=== PATIENT | female | born 1985 | race Caucasian/White ===

== ENCOUNTER 2019-04-17 19:36 | Emergency (ER) | payer SELFPAY ==
[2019-04-17 19:36] VITALS: BP 163/101; PULSE 80; RESP 16; TEMP 36.8; O2SAT 100; BMI 31.4
--- NOTE | 2019-04-17 19:42 | ED.RN ---
CALLED FOR EKG, NO ANSWER, NO OLD EKGS IN MUSE
--- NOTE | 2019-04-17 20:12 | EKG12_ITS ---
Test Reason : PALPATIONS Blood Pressure : / mmHG Vent. Rate : 077 BPM Atrial Rate : 077 BPM P-R Int : 164 ms QRS Dur : 084 ms QT Int : 402 ms P-R-T Axes : 036 -20 017 degrees QTc Int : 454 ms Normal sinus rhythm Normal ECG Confirmed by DIANE PENA, FABI ([id number]), copy editor KWABENA HARTMANN ([id number]) on 04/18/2019 9:11:47 AM Referred By: AZRA Confirmed By:FABI CONTRERAS MD
[2019-04-17] MEDS: 0.9% Normal Saline 1,000 ML 150 ML IV (20:26)
[2019-04-17 20:37] LABS: Internal QC Validated? YES +Cl - CLEAR BKGD; Pregnancy, Serum, hCG Quali. NEGATIVE Negative
[2019-04-17 20:42] LABS: D-Dimer Quantitative (DVT/PE) 0.33 FEU/ug/m (0.27-0.49)
[2019-04-17 20:45] LABS: Absolute Lymphocyte Count 2.18 X10^3/uL (0.83-4.51); Absolute Neutrophil Count 5.9 X10^3/uL (2.0-7.7); Basophil# 0.07 X10^3/uL; Basophil% 0.8 % (0-1); Eosinophil# 0.13 X10^3/uL; Eosinophils% 1.5 % (0-5); Hematocrit 43.5 % (37-47); Hemoglobin 14.8 g/dL (12.0-15.0); Lymphocyte # 2.18 X10^3/ul (4.0); Lymphocyte % 24.7 % (19-41); Mean Corpuscular Volume 91.2 fL (81-99); Mean Platelet Vol. 11.3 fl (6.2-12.0); Monocyte# 0.54 X10^3/uL; Monocyte% 6.1 % (0-10); NRBC Flagged by Analyzer 0 % (0-5); Neutrophil # 5.88 X10^3/uL (2.7-7.7); Neutrophil % 66.7 % (47-70); Platelet Count 213 K/mm3 (150-450); RBC Distribution Width CV 11.9 % (11.6-14.6); RBC Distribution Width SD 39.5 fl (35.1-43.9); Red Blood Count 4.77 M/mm3 (4.2-5.4); White Blood Count 8.8 K/mm3 (4.4-11.0)
[2019-04-17 20:48] VITALS: BP 144/93; PULSE 84; RESP 16; O2SAT 98
[2019-04-17 20:51] LABS: Anion Gap 8 (5-15); BUN 11 mg/dL (7-18); BUN/Creat Ratio 10.4 RATIO (10-20); Chloride 109 mmol/L (98-107); Creatinine, Serum 1.06 mg/dL (0.55-1.02); EST Glomerular Filtration Rate 63 mL/min (>60); Est Glom Filt Rate - Afr Amer 76 mL/min (>60); Glucose 126 mg/dL (74-106); Potassium 3.5 mmol/L (3.5-5.1); Sodium Level 145 mmol/L (136-145); Thyroid Stim Hormone (TSH) 2.97 uIU/mL (0.358-3.74)
--- NOTE | 2019-04-17 21:07 | ED.DCSUM_ITS ---
- ER Visit Summary Date of Service: 04/17/19 Chief Complaint: [Chest tightness and fluttering and chest] History of Present Illness: The patient is a 33 F [with symptoms that started about 3 hours ago. Patient denies any chest pain per se she has some mild shortness of breath. Patient normally drinks about 2 cups of coffee a day. She has no history of anxiety. Last menstrual. Was 1 week ago and she does not believe that she is . Patient felt somewhat lightheaded earlier in the day. Patient has had similar symptoms in the past but these usually have passed after a short time. She denies recent travel or surgery. Patient's mother has history of mitral valve prolapse but she herself is never been diagnosed with that. She has not had any fever or cough. No thyroid history.] Physical Examination: [HEENT-PERRLA, EOMI. Cranial nerves II through XII grossly intact. TMs clear. Mucous membranes moist. No adenopathy. Cardiovascular-regular rate and rhythm without murmur or ectopy. No rubs, or clicks noted. Lungs-clear to auscultation, chest wall stable without crepitus or subcu emphysema Abdomen-normoactive bowel sounds, soft, nontender, no rebound or rigidity, no peritoneal signs. Extremities-intact ?4, normal range of motion, normal pulses, atraumatic Test Results: [EKG obtained on arrival shows sinus rhythm with a ventricular rate of 77 bpm with no evidence of ectopy. CBC with differential was normal. Chemistries unremarkable. Troponin is less than 0.15. hCG was negative. D- dimer was normal. TSH was 2.97.] Emergency Department Course and Treatment: [] Treatment Plan: [Follow-up with primary care physician within next 3 to 5 days. Patient would like to follow-up with Dr. Shaffer] Disposition: [Discharged home in stable condition] Impression: [Palpitations-etiology uncertain.] This note was generated with Mr Bananaation software. It may contain incorrect words, spelling, and punctuation that were not noted in review of the chart prior to signing ED Disposition - Plan for ED Patient: Referrals: Care Physician,No Primary [Primary Care Provider] -
--- NOTE | 2019-04-17 21:10 | ED.DEP ---
ED Disposition - Plan for ED Patient: Instructions: Palpitations Referrals: Care Physician,No Primary [Primary Care Provider] - Melina Shaffer MD [STAFF PHYSICIAN] - 3-5 Days
[2019-04-17 21:13] VITALS: BP 141/96; PULSE 64; RESP 13; O2SAT 99
== END 2019-04-17 21:19 | disposition home or self-care (01) ==
LOC: ED 20:35
PROVIDERS: Emergency Provider Emergency Medicine
DX: R00.2 Palpitations (principal); R42 Dizziness and giddiness; R07.89 Other chest pain; R06.02 Shortness of breath
CPT/HCPCS: 80048; 84443; 84484; 84703; 85025; 85379; 93005; 96360; 99284; J7030; A4216

== ENCOUNTER → 2019-05-20 14:02 | Outpatient (CLI) | payer SELFPAY | PROVIDERS: Family Provider Family Medicine; PCP Family Medicine; Visit Provider Family Medicine | DX: N92.6 Irregular menstruation, unspecified (principal); E28.2 Polycystic ovarian syndrome; D64.9 Anemia, unspecified | CPT/HCPCS: 36415 ==

== ENCOUNTER 2020-06-19 08:45 | Inpatient (IN) | payer SELFPAY ==
[2020-06-19] VITALS (22 sets, daily range): BP systolic 104–156; BP diastolic 58–101; PULSE 64–95; RESP 15–18; TEMP 36.3–37.7; O2SAT 95–100; BMI 35.0
[2020-06-19] MEDS: Lactated Ringers 1,000 ML 999 ML IV (10:40)
[2020-06-19 10:58] LABS: Absolute Neutrophil Count 9.3 X10^3/uL (2.0-7.7); Basophil# 0.04 X10^3/uL; Basophil% 0.3 % (0-1); Eosinophil# 0.05 X10^3/uL; Eosinophils% 0.4 % (0-5); Hematocrit 40.2 % (37-47); Hemoglobin 13.8 g/dL (12.0-15.0); Lymphocyte % 14.5 % (19-41); Mean Corp Hgb Conc 34.3 g/dL (32-36); Mean Corpuscular Hgb 32.6 pg (27.0-32.0); Mean Platelet Vol. 11.4 fl (6.2-12.0); Monocyte# 0.58 X10^3/uL; Monocyte% 4.9 % (0-10); NRBC Flagged by Analyzer 0 % (0-5); Neutrophil # 9.28 X10^3/uL (2.7-7.7); Neutrophil % 79.3 % (47-70); Platelet Count 187 K/mm3 (150-450); RBC Distribution Width SD 44.6 fl (35.1-43.9); Red Blood Count 4.23 M/mm3 (4.2-5.4); White Blood Count 11.7 K/mm3 (4.4-11.0)
[2020-06-19 11:08] LABS: International Normalized Ratio 0.9; Prothrombin Time (Protime)PT. 12.1 SECONDS (11.7-14.9)
--- NOTE | 2020-06-19 11:14 | HP.PCM_ITS ---
- Problem List (1) Pre-eclampsia Status: Acute (2) premature rupture of membranes (PPROM) with onset of labor within 24 hours of rupture in third trimester, antepartum Status: Acute (3) Breech presentation Status: Acute History Date of Admission: 06/19/20 Final LEONARD: 07/14/20 Gestational age: 36 Weeks and 3 Days History of this : This is a 35 year-old, , at 36 weeks gestational age presents with P PROM and elevated blood pressures. She has been receiving care by a bricklayer supervisor Audra Foy. She has a history of 4 previous term vaginal deliveries at home without any complications. She had ultrasound at 20 weeks with this that showed no significant abnormality. Blood pressures have been increasing over the last several days and patient is asymptomatic denying any vaginal bleeding headache blurry vision right upper quadrant pain or nausea or vomiting. Denies any previous hypertension with any . She began leaking at 430 this morning clear fluid. Blood pressures are 150s over 90s. CBC and CMP are within normal limits. Allergies No Known Allergies Allergy (Verified 04/17/19 19:38) Home Medications: Home Medications Pnv No.95/Ferrous Fum/Folic AC [ Caplet] 1 ea PO 06/19/20 Smoking Status: Never smoker Alcohol: None Number of Fetus(es): 1 NST - FHR Rate Baby A Baseline: 140 Variability:: Minimal, Moderate Accelerations:: 15 x 15 Decelerations:: None NST Reactive:: Yes FHR Category:: Category I, Category II - initially then resolved with oxygen and fluids Uterine Activity:: no regular History Past Pregnancies: Past Pregnancies 4 previous term vaginal deliveries weighing 7 pounds to 8 pounds. Home births without complication. Labs: Mom's Problem List Problem Status Onset Code Pre-eclampsia Acute O14.90 premature rupture of membranes (PPROM) with onset of labor within 24 wil rs of rupture in third trimester, antepartum Acute O42.013 Breech presentation Acute O32.1XX0 Mom's Labs & Results 06/19/20 06/19/20 06/19/20 10:40 10:40 10:40 WBC 11.7 H RBC 4.23 Hgb 13.8 Hct 40.2 MCV 95.0 MCH 32.6 H MCHC 34.3 RDW Std Deviation 44.6 H RDW Coeff of Landy 13.0 Plt Count 187 MPV 11.4 Immature Gran % (Auto) 0.600 Neut % (Auto) 79.3 H Lymph % (Auto) 14.5 L [place] % (Auto) 4.9 Eos % (Auto) 0.4 Baso % (Auto) 0.3 Absolute Neuts (auto) 9.3 H Absolute Lymphs (auto) 1.70 Nucleated RBC % 0 PT INR APTT Creatinine Estim Creat Clear Calc Est GFR (MDRD) Af Amer Est GFR (MDRD) Non-Af Uric Acid AST ALT RPR Hep Bs Antigen Hepatitis C Antibody HIV 1&2 Antibody Rubella IgG Antibody Pending Blood Type Pending Antibody Screen Pending 06/19/20 06/19/20 06/19/20 10:40 10:40 10:40 WBC RBC Hgb Hct MCV MCH MCHC RDW Std Deviation RDW Coeff of Landy Plt Count MPV Immature Gran % (Auto) Neut % (Auto) Lymph % (Auto) [place] % (Auto) Eos % (Auto) Baso % (Auto) Absolute Neuts (auto) Absolute Lymphs (auto) Nucleated RBC % PT 12.1 INR 0.9 APTT 25.0 Creatinine Estim Creat Clear Calc Est GFR (MDRD) Af Amer Est GFR (MDRD) Non-Af Uric Acid AST ALT RPR Pending Hep Bs Antigen Pending Hepatitis C Antibody Pending HIV 1&2 Antibody Pending Rubella IgG Antibody Blood Type Antibody Screen 06/19/20 10:49 WBC RBC Hgb Hct MCV MCH MCHC RDW Std Deviation RDW Coeff of Landy Plt Count MPV Immature Gran % (Auto) Neut % (Auto) Lymph % (Auto) [place] % (Auto) Eos % (Auto) Baso % (Auto) Absolute Neuts (auto) Absolute Lymphs (auto) Nucleated RBC % PT INR APTT Creatinine 0.74 Estim Creat Clear Calc 83.92 Est GFR (MDRD) Af Amer 114 Est GFR (MDRD) Non-Af 94 Uric Acid 4.8 AST 15 ALT 16 RPR Hep Bs Antigen Hepatitis C Antibody HIV 1&2 Antibody Rubella IgG Antibody Blood Type Antibody Screen Course Did the patient receive Yes care? Labs HbSAg Collected on Admission Chlamydia Not Done Gonorrhea Not Done HIV/AIDS Non-Reactive Group B Strep: Collected on Admission Current Obstetrical History Gestational Diabetes No Incompetent Cervix No Infertility No IUGR No Macrosomia No Hypertension/Pre-eclampsia Yes Placenta Previa/Abruption No PTL/PROM Yes Uterine anomaly No Oligohydramnios No Polyhydramnios No Multiple gestation No Past Medical History Asthma No Diabetes No Hypertension No Heart disease No Mitral valve prolapse No Neurologic/Seizure disorder/ No Migraines Kidney disease No Liver disease No Varicosities No Clotting disorders/Hx of DVT No Psychiatric disorders Yes: h/o panic attacks Major trauma Yes: 20 yo kick in leg playing soccer that caused blood clot causing mini stroke Abnormal PAP smear No Sleep apnea No Mammogram in the last 2 years No Social History Marital Status: Alleged father Guilherme Singh Hx Smoking No Smoking Status Never smoker Expected Infant Delivery Method: Primary Section Review of Systems Constitutional: Denies: Fever, Malaise Eyes: Denies: Blurred vision, Vision Change HEENT: Denies: Head Aches, Visual Changes Cardiovascular: Denies: Chest Pain, Palpitations Respiratory: Denies: Cough, Shortness of Breath, Wheezing Gastrointestinal: Denies: Abdominal Pain, Diarrhea, Nausea, Vomiting Genitourinary: Denies: Dysuria, Hematuria Gynecological: Reports: Vaginal discharge Musculoskeletal: Denies: Joint Pain, Muscle pain Skin: Denies: Lesions, Rash Neurological: Denies: Blurred vision, Focal weakness, Headaches Psychiatric: Denies: Anxiety, Depression Endocrine: Denies: Heat/ Cold Intolerance Hematologic/ Lymphatic: Denies: Easy Bruising, Easy Bleeding Physical Exam Vitals: Vital Signs Temp Pulse BP 99.9 F H 95 156/101 H 06/19/20 08:58 06/19/20 10:08 06/19/20 10:08 General: Alert, Cooperative, No apparent distress HEENT: Atraumatic, Normocephalic. Negative for: Thyromegaly, Lymphadenopathy Cardiovascular: Regular rate Lungs: Normal air movement Abdomen: Soft, Non Tender, Gravid Neurological: Deep Tendon Reflexes 2+/4 and Symmetrical, Neuro grossly intact. Negative for: Clonus OFFICE ASSOCIATE: Normal external genitalia. Negative for: Vulvar lesions Estimated gestational size: Appropriate for gestational size Presentation: Breech Cervix Dilation (cm): 3 Assessment/Plan All Active Problems Pre-eclampsia (Acute) premature rupture of membranes (PPROM) with onset of labor within 24 hours of rupture in third trimester, antepartum (Acute) Breech presentation (Acute) This is a 35 year-old, , at 36 weeks gestational age presents with P PROM and preeclampsia with mild features and breech presentation. Discussed with patient and her recommend proceeding with primary low transverse due to breech presentation and ruptured fluid. Patient is not a candidate for external cephalic version or for vaginal breech .
--- NOTE | 2020-06-19 11:19 | PCM.OPRPT ---
Problem List (1) Pre-eclampsia Status: Acute (2) premature rupture of membranes (PPROM) with onset of labor within 24 hours of rupture in third trimester, antepartum Status: Acute (3) Breech presentation Status: Acute Delivery Final LEONARD: 07/14/20 Gestational age: 36 Weeks and 4 Days joinery machinist: Eleni Mims Type of Anesthesia:: Spinal Special Medications: none Implants Used: none Date of Procedure: 06/19/20 Pre-Operative Diagnosis: pprom breech preeclampsia with mild features Post-Operative Diagnosis: same Indications for : Breech Description of Procedure: Spinal anesthesia was placed without difficulty. Serrato catheter was placed. The patient was placed in the dorsal supine position with leftward tilt. Patient was prepped and draped in the normal sterile fashion. Pfannenstiel skin incision was made with the scalpel and carried through to the underlying layer of fascia with the scalpel. Fascia was nicked in the midline and the incision extended laterally. The rectus bellies were dissected off superiorly and inferiorly with out complication both sharply and bluntly. The peritoneum was entered digitally. The incision was stretched and a low transverse uterine incision was made with the scalpel. The 's buttox and body was delivered atraumatically followed by the anterior and posterior shoulders without complication the rest of the infant delivered. The cord was clamped and cut and the infant was handed off to awaiting nurse. The placenta was delivered spontaneously immediately following and was noted to be intact and have a three-vessel cord. The uterus was exteriorized cleared of all clots and debris, and the incision was closed in a double layer closure using #1 Monocryl. The ovaries and fallopian tubes were noted to be within normal limits. The uterus was returned to the maternal abdomen and gutters were cleared of all clots and debris. The peritoneum was closed with 3-0 Monocryl in a running fashion. Gloves were changed prior to fascial closure. Fascia was closed with 0 PDS in a running fashion. Subcutaneous tissue was copiously irrigated and the skin was closed with 3-0 Monocryl in a subcuticular fashion. Mepilex dressing was applied without complication. Patient was taken to recovery in stable condition. It was discussed with the patient that based on the clinical information obtained during this encounter, combined with her history, at this time I would recommend vaginal or cesareans for future deliveries if further pregnancies are desired. Amniotic Membrane Rupture Type: Spontaneous Amniotic Fluid Description: Clear Placenta Disposition: [facility] Fluids Replaced: crystalloid Cord Entanglement: None Cord Vessel Description: 3 Vessels Esitmated Blood Loss (ml): 600 Infant Gender: Male Delayed cord clamping: Yes Antibiotic Given: Ancef 2 grams IV x1, Zithromax 500 mg/5 mL X1 Pt instructed on risks of surgery: Bleeding, Anesthesia Risks, Infection, Injury to surrounding structure(s) including bowel and bladder Complications: None - Admit VTE Documentation VTE Present on Admission: No Multi Select Codes - Urinary/Genital Urinary/Genital CPT Codes: 84165 delivery+ Care([facility])
[2020-06-19 11:21] LABS: AST(SGOT) 15 U/L (15-37); Alanine Aminotransfer ALT/SGPT 16 U/L (13-56); Creatinine, Serum 0.74 mg/dL (0.55-1.02); EST Glomerular Filtration Rate 94 mL/min (>60); Est Glom Filt Rate - Afr Amer 114 mL/min (>60); Estimated Creatinine Clearance 83.92 ml/min; Uric Acid 4.8 mg/dL (2.6-6.0)
[2020-06-19] MEDS: Sodium Citrate/Citric Acid 30 ML UDC PO (11:30)
[2020-06-19] MEDS: Acetaminophen 500 MG Tablet 1000 MG PO ×3 (11:30→23:57)
[2020-06-19 11:33] LABS: Rubella IgG Reactive (Nonreactive)
[2020-06-19] MEDS: Cefazolin 2 GM in 0.9% Normal Saline 100 ML IV (11:48)
[2020-06-19 12:00] LABS: HIV - WCH Non-Reactive (Nonreactive); Hepatitis B Surface Antigen Non-Reactive (Nonreactive); Hepatitis C Antibody Non-Reactive (Nonreactive)
[2020-06-19] MEDS: Oxytocin 30 units/NS 500 ml 30 UNITS/500 ML IV.SOLN 167 UNITS IV (13:00)
[2020-06-19] MEDS: Lactated Ringers 1,000 ML 100 ML IV (15:43)
[2020-06-19] MEDS: Ketorolac 30 MG/ML Syringe IV ×2 (18:34→23:59)
[2020-06-19] MEDS: 0.9% Saline Lock 10 ML Syringe IV (23:59)
[2020-06-20] MEDS: Enoxaparin 40 MG/0.4 ML Syringe SC (00:01)
[2020-06-20 00:12] VITALS: BP 147/96; PULSE 84; RESP 16; TEMP 36.7; O2SAT 98
[2020-06-20 00:13] VITALS: PULSE 86; RESP 16; O2SAT 98
[2020-06-20 03:17] VITALS: BP 120/82; PULSE 86; RESP 16; TEMP 36.3; O2SAT 95
[2020-06-20 05:09] LABS: Hematocrit 33.1 % (37-47); Hemoglobin 11.2 g/dL (12.0-15.0); Mean Corp Hgb Conc 33.8 g/dL (32-36); Mean Corpuscular Hgb 32.9 pg (27.0-32.0); Mean Corpuscular Volume 97.4 fL (81-99); Mean Platelet Vol. 10.9 fl (6.2-12.0); Platelet Count 161 K/mm3 (150-450); RBC Distribution Width CV 13.1 % (11.6-14.6); RBC Distribution Width SD 45.7 fl (35.1-43.9); White Blood Count 13.5 K/mm3 (4.4-11.0)
--- NOTE | 2020-06-20 05:18 | DCINST_ITS ---
Discharge Diet: No Restrictions Discharge Activity: May Not Drive - for 2 weeks, May not drive while taking narcotic pain medications., May Shower, May Take a Tub Bath - in 7 days May resume sexual activity in: 4-6 weeks Lifting Restrictions: 20 pounds Additional Activity Instructions:: Nothing in the vagina for 4-6 weeks. You may return to work/school in 6 weeks. Call your doctor if your incision/area has: Continuous Slow Oozing, Sudden Increased Bleeding, Increased Pain/ Swelling, Increased Redness, Foul Smelling Discharge Call your doctor if you observe: Fever of 101 or Higher, Using more than one pad per hour - for 2 hours Suture Line Care: Avoid Pulling/Pushing, Avoid Pinching/Bending Cleanse incision/area with: Keep Dressing Clean & Dry Additional Instructions: If you experience any of the following, contact your healthcare provider. * Bleeding that soaks a pad every hour for 2 hours * Fever 100.4 or higher * Unrelieved incision or abdominal pain * Swelling, redness, discharge or bleeding from your incision or episiotomy site * Your incision begins to separate * Problems urinating (including inability to urinate or burning while urinating). * Visual changes * Severe headache * Flu-like symptoms * Pain or redness in one of both of your breasts * Pain, warmth, tenderness or swelling in your legs, especially the calf area * Frequent nausea and vomiting * Symptoms of depression or anxiety If you experience any of the following, call 911 or go to the nearest Emergency Room. * Chest pain * Problems breathing * Seizure activity * Partial or complete paralysis of a body part, slurred speech, weakness or drooping of the face, or a sudden inability to walk or hold your balance Allergies/Adverse Reactions: Allergies No Known Allergies Allergy (Verified 06/19/20 11:23) Medications to take at Discharge Pnv No.95/Ferrous Fum/Folic AC [ Caplet] 1 ea PO 06/19/20 Naproxen [Naprosyn] 250 - 500 mg PO Q8H PRN PRN #30 tab 06/20/20 Oxycodone HCl/Acetaminophen [Percocet 5-325] 1 - 2 tablet PO Q6H PRN PRN 7 Days #15 tablet 06/20/20 The following prescriptions were given: Naproxen [Naprosyn] 250 - 500 mg PO Q8H PRN PRN #30 tab PRN Reason: MILD PAIN Transmission Status: Pending to [facility] Oxycodone HCl/Acetaminophen [Percocet 5-325] 1 - 2 tablet PO Q6H PRN PRN 7 Days #15 tablet PRN Reason: Pain Transmission Status: Received by [facility] Follow-Up: Call to make an appointment with your doctor for an incision check in 1-2 weeks. You will also need a 6 week post- follow up appointment. Test results from this visit will be discussed in further detail at your follow- up appointment, if applicable. Please Follow Up With: Selma Gutierrez MD - Call to make an appointment for an incision check in 1-2 [phone] When: You will need a post- check in 6 weeks. Primary Care Physician: Sunny Velasco MD [Primary Care Provider] -
[2020-06-20] MEDS: 0.9% Saline Lock 10 ML Syringe IV (05:36)
[2020-06-20] MEDS: Ketorolac 30 MG/ML Syringe IV ×2 (05:36→12:11)
[2020-06-20] MEDS: Acetaminophen 500 MG Tablet 1000 MG PO ×3 (05:36→19:01)
--- NOTE | 2020-06-20 08:19 | PN.OBGYN_ITS ---
Patient Problems: Active and Suspected Problems Pre-eclampsia (Acute) premature rupture of membranes (PPROM) with onset of labor within 24 hours of rupture in third trimester, antepartum (Acute) Breech presentation (Acute) Subjective: Patient doing well without complaints. Tolerating PO. Ambulating and voiding without difficulty. breast feeding well/baby in SCN. Denies chest pain, shortness of breath, calf pain/swelling, fevers, chills, lightheadedness. - Physical Exam Vitals/I&O's: Vital Signs Temp Pulse Resp BP Pulse Ox 97.4 F L 86 16 120/82 H 95 06/20/20 03:17 06/20/20 03:17 06/20/20 03:17 06/20/20 03:17 06/20/20 03:17 Oxygen Delivery Method Room Air Weight: 191 lb 12.8 oz Body Mass Index (BMI) 35.0 Intake and Output for Last 24 Hours 06/18/20 06/19/20 06/20/20 23:59 23:59 23:59 Intake Total 3903.33 / 3903.33 Output Total 150 / 150 1000 / 1000 Balance 3753.33 / 3753.33 -1000 / -1000 General: Alert, Oriented x3 Abdomen: Soft, Non-Distended - FF below U. Dressing dry and intact. Appropriately tender Laboratory Results 06/19/20 10:40: Blood Type A POSITIVE, Antibody Screen NEGATIVE 06/19/20 10:40: WBC 11.7 H, RBC 4.23, Hgb 13.8, Hct 40.2, MCV 95.0, MCH 32.6 H, MCHC 34.3, RDW Std Deviation 44.6 H, RDW Coeff of Landy 13.0, Plt Count 187, MPV 11.4, Immature Gran % (Auto) 0.600, Neut % (Auto) 79.3 H, Lymph % (Auto) 14.5 L, [place] % (Auto) 4.9, Eos % (Auto) 0.4, Baso % (Auto) 0.3, Absolute Neuts (auto) 9.3 H, Absolute Lymphs (auto) 1.70, Nucleated RBC % 0 06/19/20 10:40: Rubella IgG Antibody Reactive 06/19/20 10:40: RPR Pending 06/19/20 10:40: Hep Bs Antigen Non-Reactive, Hepatitis C Antibody Non-Reactive, HIV 1&2 Antibody Non-Reactive 06/19/20 10:40: PT 12.1, INR 0.9, APTT 25.0 06/19/20 10:49: Creatinine 0.74, Estim Creat Clear Calc 83.92, Est GFR (MDRD) Af Amer 114, Est GFR (MDRD) Non-Af 94, Uric Acid 4.8, AST 15, ALT 16 06/20/20 05:00: WBC 13.5 H, RBC 3.40 L, Hgb 11.2 L, Hct 33.1 L, MCV 97.4, MCH 32.9 H, MCHC 33.8, RDW Std Deviation 45.7 H, RDW Coeff of Landy 13.1, Plt Count 161, MPV 10.9 Current Medications Acetaminophen (Acetaminophen 500 Mg Tablet) 1,000 mg PO Q6 [facility] Last Admin: 06/20/20 05:36 Dose: 1,000 mg Documented by: Bisacodyl (Bisacodyl 10 Mg Suppository) 10 mg RECTAL UD PRN PRN Reason: If no BM Diphenhydramine HCl (Diphenhydramine 25 Mg Capsule) 25 mg PO Q6H PRN PRN PRN Reason: ITCHING Stop: 06/20/20 12:46 Enoxaparin Sodium (Enoxaparin 40 Mg/0.4 Ml Syringe) 40 mg SC DAILY [facility] Last Admin: 06/20/20 00:01 Dose: 40 mg Documented by: Hydrocortisone (Hydrocortisone 2.5% Crm) 1 applic TOPICAL TID PRN PRN; Protocol PRN Reason: Discomfort Ketorolac Tromethamine (Ketorolac 30 Mg/Ml Syringe) 30 mg IV Q6 [facility] Stop: 06/20/20 12:01 Last Admin: 06/20/20 05:36 Dose: 30 mg Documented by: Nalbuphine HCl (Nalbuphine 10 Mg/Ml Ampul) 5 mg IV Q3H PRN PRN PRN Reason: ITCHING Stop: 06/20/20 12:46 Naloxone HCl (Naloxone 0.4 Mg/Ml Syringe) 0.02 mg IV Q1M PRN PRN Reason: RR <10 and pt unresponsive Naproxen (Naproxen 250 Mg Tablet) 500 mg PO Q8H [facility] Ondansetron HCl (Ondansetron 4 Mg/2 Ml Vial) 4 mg IV Q4H PRN PRN PRN Reason: Nausea Oxycodone HCl (Oxycodone 5 Mg Tablet) 5 - 10 mg PO Q4H PRN PRN PRN Reason: Pain Score 4-10 Prochlorperazine Edisylate (Prochlorperazine 10 Mg/2 Ml Vial) 10 mg IV Q6H PRN PRN PRN Reason: NAUSEA Senna/Docusate Sodium (Senna/Docusate Sodium 1 Tablet) 0 tablet PO DAILY JAMES Simethicone (Simethicone 80 Mg Tablet) 80 mg PO PCHS PRN PRN Reason: Indigestion/stomach pain Sodium Chloride (0.9% Saline Lock 10 Ml Syringe) 5 - 15 ml IV UD PRN PRN Reason: SALINE FLUSH Last Admin: 06/20/20 05:36 Dose: 10 ml Documented by: Medical Necessity - Tobacco Use Smoking Status: Never smoker Assessment/Plan All Active Problems Pre-eclampsia (Acute) premature rupture of membranes (PPROM) with onset of labor within 24 hours of rupture in third trimester, antepartum (Acute) Breech presentation (Acute) s/p LTCS PPD # 1 1. routine post care 2. breast feeding- support given 3. rh positive 4. rubella immune
[2020-06-20 08:31] VITALS: BP 126/93; PULSE 70; RESP 16; TEMP 36.5; O2SAT 98
[2020-06-20 12:00] VITALS: BP 132/87; PULSE 78; RESP 16; TEMP 36.9; O2SAT 99
[2020-06-20] MEDS: Senna/Docusate Sodium 1 Tablet PO (12:12)
--- NOTE | 2020-06-20 16:00 | CASEMGMT ---
Social Work Labor and Delivery Reason for SW intervention: Baby admitted into the [facility], and premature deliveyr. Date of intervention: 06.20.2020 Time of intervention: 1600 Referral Source: SW identification; [facility] admission History obtained from:?Medical record and mother of baby (MOB) Saira Singh. ??This group underwriter is the social welfare administrator for the hospital of delivery, and for continuity of care of families admitted to the [facility], this group underwriter is also assigned to the [facility] for social work service needs ? Household composition:?MOB, father of baby (FOB) Guilherme Singh, and the parents 4 older sons. ?Home situation is reported as safe and adequate. ? ? Patient's parent/guardian status:?MOB and FOB are both age 35, , and now have 5 children together. ?MOB denies any safety concerns in relationship with the FOB. ??Minor children include: ?Deven (age 12), Jame (age 11), Moises (age 9), Yanick (age 6), and baby Colton (born 06.19.2020). ? ? Medical History:?MOB is G6, P4 to 5 after delivering Colton. ?MOB sought care with stock layer Marilee Foy for each of MOB's pregnancies, and delivery of Colton was the first for MOB in a hospital setting. ?Delivery via primary due to breech presentation. Delivery at 36 week gestation. ? weight 5 pounds 15 ounces. ?Apgars 8 and 9 at 1 and 5 minutes of life. ? ? Developmental Concerns:?None identified for the parents. ? born 36 weeks premature. ? Educational Status:??No reported learning issues reported. ? [facility]?? ? 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 ?Financial status is reported as adequate with one income. ? ? Childcare/Caregiver(s):?MOB is primary caregiver.?? ? Transportation:?No issues reported or indicated.?? ? Programs/Agencies Involved:?MOB denies any agency involvement, desire or need for any additional referrals.?? ? Behavioral Health Issues:?MOB reports history of panic attack 2 years ago after miscarriage. Reports this was a one time occurrence. ?MOB denies any history of depression, anxiety otherwise, and no history of depression. ? ? Family Stressors:?Maternal history of loss 2 years ago, and Colton was the first after loss. ?36 week premature delivery in hospital setting; all other deliveries at home. ??Baby admitted to NICU setting. ? ? Support Systems:?MOB reports to have good support from FOB and from MOB's 3 sisters. ?MOB reports her sisters will be around to help out when MOB discharges home. ?? ? Assessment Met with MOB at baby's bedside. ?MOB working on baby. ?MOB handling baby appropriate and gentle. ?MOB pleasant, cooperative, and agreeable to meet with social welfare administrator. ?Good eye contact, affect and mood appropriate and congruent to content. ?MOB reports to have all needed supplies for baby including safe sleep space, as well as to have adequate support at home. ??MOB also indicates having a positive connection with the baby. ?Educated MOB mood and anxiety disorders, risk factors, and importance of seeking support should symptoms arise. ?MOB accepting of resource packet for [facility] and then packet on mood and anxiety disorders. ?? ? Plan MOB to discharge home when stable. Baby will discharge home from the [facility] to parents when ready. ?Community resource information and mood/anxiety packet provided. ? No further needs identified. ? TRACIE Powell?
[2020-06-20] MEDS: Naproxen 250 MG Tablet 500 MG PO (20:32)
[2020-06-20 20:33] VITALS: BP 148/98; PULSE 94; RESP 16; TEMP 36.3; O2SAT 98
[2020-06-21] VITALS (7 sets, daily range): BP systolic 125–163; BP diastolic 85–102; PULSE 86–94; RESP 14–18; TEMP 36.4–37.2; O2SAT 98–99
[2020-06-21] MEDS: Acetaminophen 500 MG Tablet 1000 MG PO ×4 (01:09→19:20)
[2020-06-21] MEDS: Enoxaparin 40 MG/0.4 ML Syringe SC (01:09)
[2020-06-21] MEDS: Naproxen 250 MG Tablet 500 MG PO ×3 (01:45→19:20)
[2020-06-21 05:07] LABS: Rapid Plasmin Reagin (RPR) NONREACTIVE (NONREACTIVE)
--- NOTE | 2020-06-21 09:29 | PN.OBGYN_ITS ---
Patient Problems: Active and Suspected Problems Pre-eclampsia (Acute) premature rupture of membranes (PPROM) with onset of labor within 24 hours of rupture in third trimester, antepartum (Acute) Breech presentation (Acute) Subjective: Attempted to round on patient, but currently in special care nursery. Patient discussed with RN. Patient doing well. Pain controlled. Ambulating and voiding without difficulty. - Physical Exam Vitals/I&O's: Vital Signs Temp Pulse Resp BP Pulse Ox 97.8 F 91 16 134/92 H 98 06/21/20 08:20 06/21/20 08:20 06/21/20 08:20 06/21/20 08:20 06/21/20 08:20 Oxygen Delivery Method Room Air Weight: 191 lb 12.8 oz Body Mass Index (BMI) 35.0 Intake and Output for Last 24 Hours 06/19/20 06/20/20 06/21/20 23:59 23:59 23:59 Intake Total 3903.33 / 3903.33 Output Total 150 / 150 1000 / 1000 Balance 3753.33 / 3753.33 -1000 / -1000 Comment: Unable to perform exam. Per RN, incision c/d/i and fundus firm Laboratory Results 06/19/20 10:40: RPR NONREACTIVE Current Medications Acetaminophen (Acetaminophen 500 Mg Tablet) 1,000 mg PO Q6 [facility] Last Admin: 06/21/20 07:19 Dose: 1,000 mg Documented by: Bisacodyl (Bisacodyl 10 Mg Suppository) 10 mg RECTAL UD PRN PRN Reason: If no BM Enoxaparin Sodium (Enoxaparin 40 Mg/0.4 Ml Syringe) 40 mg SC DAILY [facility] Last Admin: 06/21/20 01:09 Dose: 40 mg Documented by: Hydrocortisone (Hydrocortisone 2.5% Crm) 1 applic TOPICAL TID PRN PRN; Protocol PRN Reason: Discomfort Naloxone HCl (Naloxone 0.4 Mg/Ml Syringe) 0.02 mg IV Q1M PRN PRN Reason: RR <10 and pt unresponsive Naproxen (Naproxen 250 Mg Tablet) 500 mg PO Q8H [facility] Last Admin: 06/21/20 01:45 Dose: 500 mg Documented by: Ondansetron HCl (Ondansetron 4 Mg/2 Ml Vial) 4 mg IV Q4H PRN PRN PRN Reason: Nausea Oxycodone HCl (Oxycodone 5 Mg Tablet) 5 - 10 mg PO Q4H PRN PRN PRN Reason: Pain Score 4-10 Prochlorperazine Edisylate (Prochlorperazine 10 Mg/2 Ml Vial) 10 mg IV Q6H PRN PRN PRN Reason: NAUSEA Senna/Docusate Sodium (Senna/Docusate Sodium 1 Tablet) 0 tablet PO DAILY [facility] Last Admin: 06/20/20 12:12 Dose: 1 tablet Documented by: Simethicone (Simethicone 80 Mg Tablet) 80 mg PO PCHS PRN PRN Reason: Indigestion/stomach pain Sodium Chloride (0.9% Saline Lock 10 Ml Syringe) 5 - 15 ml IV UD PRN PRN Reason: SALINE FLUSH Last Admin: 06/20/20 05:36 Dose: 10 ml Documented by: Medical Necessity - Tobacco Use Smoking Status: Never smoker Assessment/Plan All Active Problems Pre-eclampsia (Acute) premature rupture of membranes (PPROM) with onset of labor within 24 hours of rupture in third trimester, antepartum (Acute) Breech presentation (Acute) s/p LTCS PPD # 2 1. routine post care 2. breast feeding 3. rh positive 4. rubella immune
[2020-06-21] MEDS: Senna/Docusate Sodium 1 Tablet PO (11:13)
[2020-06-21] MEDS: NIFEdipine 30 MG Tablet PO (22:34)
[2020-06-22 01:00] VITALS: BP 124/93; PULSE 79; RESP 18; TEMP 36.4
[2020-06-22] MEDS: Acetaminophen 500 MG Tablet 1000 MG PO ×2 (01:10→08:14)
[2020-06-22] MEDS: Naproxen 250 MG Tablet 500 MG PO ×2 (03:46→11:00)
[2020-06-22 03:48] VITALS: BP 127/89; BP 141/89; PULSE 88; RESP 18
--- NOTE | 2020-06-22 07:49 | PN.OBGYN_ITS ---
Patient Problems: Active and Suspected Problems Pre-eclampsia (Acute) premature rupture of membranes (PPROM) with onset of labor within 24 hours of rupture in third trimester, antepartum (Acute) Breech presentation (Acute) Subjective: Patient doing well without complaints. Tolerating PO. Ambulating and voiding without difficulty. feeding well. Denies chest pain, shortness of breath, calf pain/swelling, fevers, chills, lightheadedness. - Physical Exam Vitals/I&O's: Vital Signs Temp Pulse Resp BP Pulse Ox 97.5 F L 88 18 141/89 H 99 06/22/20 01:00 06/22/20 03:48 06/22/20 03:48 06/22/20 03:48 06/21/20 11:15 Oxygen Delivery Method Room Air Weight: 191 lb 12.8 oz Body Mass Index (BMI) 35.0 Intake and Output for Last 24 Hours 06/20/20 06/21/20 06/22/20 23:59 23:59 23:59 Output Total 1000 / 1000 Balance -1000 / -1000 General: Alert, Oriented x3 Current Medications Acetaminophen (Acetaminophen 500 Mg Tablet) 1,000 mg PO Q6 [facility] Last Admin: 06/22/20 01:10 Dose: 1,000 mg Documented by: Bisacodyl (Bisacodyl 10 Mg Suppository) 10 mg RECTAL UD PRN PRN Reason: If no BM Enoxaparin Sodium (Enoxaparin 40 Mg/0.4 Ml Syringe) 40 mg SC DAILY [facility] Last Admin: 06/21/20 01:09 Dose: 40 mg Documented by: Hydrocortisone (Hydrocortisone 2.5% Crm) 1 applic TOPICAL TID PRN PRN; Protocol PRN Reason: Discomfort Naloxone HCl (Naloxone 0.4 Mg/Ml Syringe) 0.02 mg IV Q1M PRN PRN Reason: RR <10 and pt unresponsive Naproxen (Naproxen 250 Mg Tablet) 500 mg PO Q8H [facility] Last Admin: 06/22/20 03:46 Dose: 500 mg Documented by: Nifedipine (Nifedipine 30 Mg Tablet) 30 mg PO DAILY@2200 [facility] Last Admin: 06/21/20 22:34 Dose: 30 mg Documented by: Ondansetron HCl (Ondansetron 4 Mg/2 Ml Vial) 4 mg IV Q4H PRN PRN PRN Reason: Nausea Oxycodone HCl (Oxycodone 5 Mg Tablet) 5 - 10 mg PO Q4H PRN PRN PRN Reason: Pain Score 4-10 Prochlorperazine Edisylate (Prochlorperazine 10 Mg/2 Ml Vial) 10 mg IV Q6H PRN PRN PRN Reason: NAUSEA Senna/Docusate Sodium (Senna/Docusate Sodium 1 Tablet) 0 tablet PO DAILY [facility] Last Admin: 06/21/20 11:13 Dose: 1 tablet Documented by: Simethicone (Simethicone 80 Mg Tablet) 80 mg PO PCHS PRN PRN Reason: Indigestion/stomach pain Sodium Chloride (0.9% Saline Lock 10 Ml Syringe) 5 - 15 ml IV UD PRN PRN Reason: SALINE FLUSH Last Admin: 06/20/20 05:36 Dose: 10 ml Documented by: Medical Necessity - Tobacco Use Smoking Status: Never smoker Assessment/Plan All Active Problems Pre-eclampsia (Acute) premature rupture of membranes (PPROM) with onset of labor within 24 hours of rupture in third trimester, antepartum (Acute) Breech presentation (Acute) s/p LTCS PPD # 3 1. routine post care 2. breast feeding- support given 3. rh positive 4. rubella immune elevated bps- started on procardia.
[2020-06-22 08:15] VITALS: BP 139/92; PULSE 78; RESP 16; TEMP 36.3
[2020-06-22] MEDS: Enoxaparin 40 MG/0.4 ML Syringe SC (09:57)
[2020-06-22] MEDS: Senna/Docusate Sodium 1 Tablet PO (09:57)
== END 2020-06-22 11:43 | disposition home or self-care (01) | DRG 788 ==
PROVIDERS: Admitting Provider Obstetrics & Gynecology; PCP Family Medicine; Referring Provider Obstetrics & Gynecology; Visit Provider Obstetrics & Gynecology
DX: O32.1XX0 Maternal care for breech presentation, not applicable or unspecified (principal); Z3A.36 36 weeks gestation of pregnancy; O42.012 Preterm premature rupture of membranes, onset of labor within 24 hours of rupture, second trimester; O14.94 Unspecified pre-eclampsia, complicating childbirth; Z37.0 Single live birth
CPT/HCPCS: 59025; 82565; 84450; 84460; 84550; 85025; 85027; 85610; 85730; 86592; 86703; 86762; 86803; 86850; 86900; 86901; 87340; 99218; J7120; A4216; G0378; J2405

== ENCOUNTER → 2022-02-24 | Outpatient (CLI) | payer SELFPAY ==
--- NOTE | 2022-02-24 14:26 | US_ITS ---
STUDY: ULTRASOUND BREAST - RIGHT REASON FOR EXAM: Female, 36 years old. Palpable mass in right breast for 7 months. Patient stopped breast-feeding 7 months ago.. TECHNIQUE: Axial and longitudinal images of the RIGHT breast were performed with a high resolution ultrasound transducer. # OF IMAGES: 36 COMPARISON: Diagnostic mammogram performed today. FINDINGS: RIGHT Breast: Targeted ultrasound shows an irregular 1.3 x 1 x 8 mm mass at the 3 o''clock position of the right breast 5 cm from the nipple with shadowing and with peripheral blood flow. A separate irregular mass at the 2 o''clock position of the right breast 5-6 cm from the nipple with blood flow and shadowing was identified. Both of these masses are highly suggestive of breast carcinoma. Percutaneous ultrasound-guided biopsy of both masses is recommended for histologic confirmation. US/Breast Limited Unilateral IMPRESSION: Two right breast masses for which further evaluation with ultrasound-guided biopsy is recommended. See discussion above. ASSESSMENT CATEGORY: BIRADS Category 5: Highly Suggestive of Malignancy - Appropriate Action Should Be Taken. A letter regarding these results will be sent to the patient by the facility within 30 days. Electronically Signed: Cameron Casas MD at 9:35 EDT ,
--- NOTE | 2022-02-24 14:26 | BI_ITS ---
MAMMOGRAPHY - BILATERAL DIAGNOSTIC REASON FOR EXAM: Female, 36 years old. Right breast lump for 7 months. Patient stopped breast-feeding 7 months ago. PERTINENT HISTORY: Maternal grandmother in her 60s. TECHNIQUE: Digital examination. Mediolateral oblique (MLO) and craniocaudad (CC) views of both breasts were obtained. Skin marker identifying the area of clinical concern. CAD: CAD was performed on this study. COMPARISON: None. FINDINGS: Breast Composition: The breasts are heterogeneously dense, which may obscure small masses. Partially obscured mass in the region of the palpable abnormality. Targeted ultrasound showed an irregular 1.3 x 1 x 8 mm mass at the 3 o''clock position of the right breast 5 cm from the nipple with shadowing and with peripheral blood flow. A separate irregular mass at the 2 o''clock position of the right breast 5-6 cm from the nipple with blood flow and shadowing was identified (see detailed ultrasound report). Both of these masses are highly suggestive of breast carcinoma. Percutaneous ultrasound-guided biopsy of both masses is recommended for histologic confirmation. BI/DIAG MAMM W/CAD, BILAT IMPRESSION: 2 irregular masses in the right breast for further evaluation with ultrasound-guided biopsy is recommended. See discussion above. ASSESSMENT CATEGORY: BIRADS Category 5: Highly Suggestive of Malignancy - Appropriate Action Should Be Taken. A letter regarding these results will be sent to the patient by the facility within 30 days. FOLLOW UP RECOMMENDATION: Ultrasound Biopsy Recommended. (L) Approximately 10% of breast cancers are not detected by mammography. A normal mammogram should not delay biopsy of a clinically suspicious abnormality. Electronically Signed: Cameron Casas MD at 17:13 EDT ,
== END | disposition home or self-care (01) ==
LOC: OPBI 14:23
PROVIDERS: PCP Family Medicine; Visit Provider Family Medicine
DX: N63.10 Unspecified lump in the right breast, unspecified quadrant (principal)
CPT/HCPCS: 76642; 77062; 77066; G0279

== ENCOUNTER → 2022-03-05 | Outpatient (CLI) | payer SELFPAY ==
--- NOTE | 2022-03-05 17:32 | MRI_ITS ---
STUDY: BILATERAL BREAST MR WITHOUT AND WITH CONTRAST REASON FOR EXAM: Female, 36 years old. Palpable right breast mass for 6 months. TECHNIQUE: Multi-sequence multi-echo imaging of both breasts was performed with a dedicated breast coil. T1-weighted and T2-weighted images were performed before the administration of contrast. T1-weighted images were also performed after the intravenous administration of 14 mL of DOTAREM. COMPARISON: Bilateral mammograms dated 02/25/2000 and right breast ultrasound dated 02/24/2022. FINDINGS: RIGHT BREAST: The breast tissue is heterogeneously dense with minimal background enhancement. In the medial aspect of the breast there are at least 4 enhancing masses. The most superior lesion masses is adjacent to the chest wall medially and is 8.3 cm behind the nipple and 3.5 cm medial to the nipple. This irregular enhancing mass measures approximately 1.6 cm x 1.5 cm x 1.6 cm. This mass is highly suspicious. Anterior and slightly lateral to this far posterior mass is another irregular enhancing mass measuring approximately 1.6 cm x 1 cm x 1.2 cm. This mass is located at the 12 o''clock position 4.7 cm behind the nipple. This mass is also highly suspicious. In the inferior portion of the right breast immediately below the nipple line there is another irregular enhancing mass measuring approximately 1.9 cm x 1.5 cm x 1.6 cm. This mass is also highly suspicious. LEFT BREAST: The breast tissue is scattered fibroglandular densities with minimal background enhancement. Enlarged right axillary lymph nodes, all of which appear to have a fatty hilum. If clinically thought to be important, targeted axillary ultrasound with biopsy of any suspicious masses is recommended. There is no abnormality in the visualized regions of the chest or liver. MRI/Breast Bilateral W/O and W IMPRESSION: 3 major masses in the medial aspect of the left breast extending from the upper inner quadrant to the lower inner quadrant compatible with multicentric breast cancer. Ultrasound-guided biopsy of the right breast is recommended for histologic confirmation. CATEGORY: BIRADS Category 5: Highly Suggestive of Malignancy - Appropriate Action Should Be Taken. A letter regarding these results will be sent to the patient by the facility within 30 days. Electronically Signed: Cameron Casas, at 9:36 EDT ,
[2022-03-05 18:25] LABS: CREATININE FINGERSTICK < 0.9 mg/dL (0.55-1.02); EGFR FINGERSTICK > 60.0000 mL/min (>60)
== END | disposition home or self-care (01) ==
PROVIDERS: PCP Family Medicine; Visit Provider Surgery
DX: N63.10 Unspecified lump in the right breast, unspecified quadrant (principal)
CPT/HCPCS: 77049; A9575; A4216; C8908

== ENCOUNTER → 2022-04-14 | Outpatient (CLI) | payer SELFPAY ==
--- NOTE | 2022-04-14 15:24 | MRI_ITS ---
STUDY: MRI BRAIN WITH AND WITHOUT CONTRAST REASON FOR EXAM: Female, 36 years old. MULTIPLE BREAST MASSES, NO HEAD COMPLAINTS, CA STAGING TECHNIQUE: Standardized multiplanar fat and water weighted pulse sequences were obtained. 15 mL of IV Clariscan was administered for the contrast portion of the examination. COMPARISON: None. FINDINGS: Normal size of the ventricles and extra-axial spaces for the patient''s age. Normal white matter tracts of the supratentorial brain. Normal bilateral basal ganglia. Normal thalami. There is no extra-axial fluid accumulation. Normal flow voids within the major intracranial circulation suggesting patency by spin echo criteria. Normal venous enhancement. There is no enhancing intra-axial or extra-axial abnormality. Developmentally hypoplastic right lateral sinus, right sigmoid sinus and right jugular bulb. Normal sella turcica, pituitary gland, infundibular stalk, optic chiasm and hypothalamus. Normal tectal plate and pineal gland. Normal midbrain, kim and medulla. Normal cerebellum. Normal basal cisterns. Normal bilateral temporal bones. Normal bilateral internal auditory canals. No demonstrated orbital abnormality, within the constraints of a routine brain study. Normal visualized paranasal sinuses. Normal calvarium and skull base. Normal visualized soft tissue structures. Normal visualized upper cervical spine. MRI/Brain W/WO Contrast IMPRESSION: Normal unenhanced and enhanced MRI of the brain. Electronically Signed: Jorden Sullivan MD at 9:43 EDT ,
--- NOTE | 2022-04-14 15:24 | US_ITS ---
INDICATION: staging BRAC 2 EXAMINATION: Ultrasound US Pelvis Non-OB Complete TECHNIQUE: Transabdominal and transvaginal pelvic ultrasound was performed. Grayscale, spectral waveform, and color flow Doppler evaluation of the adnexa. COMPARISON: None. FINDINGS: UTERUS: Anteverted. The uterus measures 12.3 x 6.5 x 4.0 cm. There is no uterine mass. The endometrial stripe measures 0.7 cm in AP diameter which is within normal limits. Nabothian cysts visualized within the cervix. RIGHT OVARY: The right ovary measures 4.0 x 3.6 x 1.9 cm.. Non-enlarged, normal echogenicity. There is normal arterial inflow and venous outflow present in the right ovary. LEFT OVARY: The left ovary measures 4.0 x 3.4 x 2.2 cm.. Non-enlarged, normal echogenicity. There is normal arterial inflow and venous outflow present in the left ovary. FREE FLUID: None. The urinary bladder is unremarkable in appearance no evidence of bladder wall thickening. The bladder volume measures 578.92 mL. US/Pelvic (Non ) IMPRESSION: Unremarkable pelvic ultrasound. Electronically Signed: Sanya Chester MD at 16:53 EDT ,
== END | disposition home or self-care (01) ==
LOC: MRI 15:22
PROVIDERS: PCP Family Medicine; Referring Provider Internal Medicine Medical Oncology; Visit Provider Internal Medicine Medical Oncology
DX: N63.10 Unspecified lump in the right breast, unspecified quadrant (principal); Z15.01 Genetic susceptibility to malignant neoplasm of breast; Z15.09 Genetic susceptibility to other malignant neoplasm
CPT/HCPCS: 70553; 76856; A9575

== ENCOUNTER → 2022-04-24 | Outpatient (CLI) | payer SELFPAY ==
--- NOTE | 2022-04-24 07:42 | US_ITS ---
STUDY: ABDOMINAL ULTRASOUND REASON FOR EXAM: Female, 36 years old. STAGING FOR MULTIPLE BREAST MASSES TECHNIQUE: Transabdominal ultrasound was performed with real-time and static anderson scale imaging. TECHNICAL QUALITY: Adequate. COMPARISON: None. FINDINGS: Liver: The liver measures 14 cm. There is normal echogenicity of the liver. The bile ducts are within normal limits. There is hepatic color flow. The direction of portal flow is hepatopetal. There is no demonstrated mass lesion. Gallbladder: Normal distended gallbladder. The gallbladder wall measures 2.5 mm. There is a negative sonographic Camarena''s sign. There is no pericholecystic fluid. There are no gallstones. Common Bile Duct (C.B.D.): The common bile duct measures 1.8 mm. Pancreas: Normal size of the head, body of the pancreas. The tail portion is obscured due to overlying bowel gas. There is normal echogenicity of the pancreas. There is no demonstrated pancreatic mass or cyst. Spleen: Normal size of the spleen. The spleen measures 10.1 cm x 5.8 cm x 5.2 cm. Right Kidney: Normal size of the right kidney. The right kidney measures 10.3 cm x 5.3 cm x 4.2 cm. Normal renal cortex. The right cortex measures 1.7 cm. There is no demonstrated renal mass or cyst. Minimally dilated right renal pelvis. Left Kidney: Normal size of the left kidney. The left kidney measures 11 cm x 5.1 cm x 5.1 cm. Normal renal cortex. The left cortex measures 2.1 cm. There is no demonstrated renal mass or cyst. There is no left hydronephrosis. Aorta: Unremarkable I.V.C.: The IVC is patent. There is no ascites. US/Abdomen Complete IMPRESSION: Minimally dilated left renal pelvis. Electronically Signed: Lincoln Santos MD at 9:35 EDT ,
== END | disposition home or self-care (01) ==
PROVIDERS: PCP Family Medicine; Referring Provider Internal Medicine Medical Oncology; Visit Provider Internal Medicine Medical Oncology
DX: N63.10 Unspecified lump in the right breast, unspecified quadrant (principal); Z15.01 Genetic susceptibility to malignant neoplasm of breast; Z15.09 Genetic susceptibility to other malignant neoplasm
CPT/HCPCS: 76700

== ENCOUNTER → 2022-05-22 | Outpatient (CLI) | payer SELFPAY ==
--- NOTE | 2022-05-22 08:47 | US_ITS ---
STUDY: ULTRASOUND BREAST - RIGHT REASON FOR EXAM: Female, 37 years old. Follow-up for right breast cancer. TECHNIQUE: Axial and longitudinal images of the RIGHT breast were performed with a high resolution ultrasound transducer. # OF IMAGES: 27 COMPARISON: Comparison is made with prior sonogram dated 03/05/2022. FINDINGS: RIGHT Breast: There is a 1.3 cm x 1.8 sided by 1.7 cm hypoechoic irregular solid mass at the 1 o''clock position the breast at 9 cm from nipple. A similar appearing mass measuring 1.7cm x 1.6 cm by 1.2 cm is seen at the 2 o''clock position breast 6 cm from nipple. Vascularity is increased. There is also evidence of a 7 mm x 5 mm x 4 mm hypoechoic irregular mass lesion at the 3 o''clock position breast at 4 cm from nipple. There is also evidence of a 6 mm x 6 mm x 5 mm hypoechoic solid irregular mass at the 3 o''clock position breast at 5 cm from nipple. Enlarged right axillary lymph node measuring 2.8 cm x 1.7 cm x 0.9 cm. US/Breast Limited Unilateral IMPRESSION: Multiple suspicious nodules in the breast as described. ASSESSMENT CATEGORY: BIRADS Category 4: Suspicious - Biopsy Should Be Considered. A letter regarding these results will be sent to the patient by the facility within 30 days. Electronically Signed: Lincoln Santos MD at 12:21 EDT ,
== END | disposition home or self-care (01) ==
PROVIDERS: PCP Family Medicine; Visit Provider Physician Assistant
DX: N63.10 Unspecified lump in the right breast, unspecified quadrant (principal)
CPT/HCPCS: 76642

== ENCOUNTER → 2022-09-15 | Outpatient (CLI) | payer SELFPAY ==
--- NOTE | 2022-09-15 08:24 | US_ITS ---
STUDY: ULTRASOUND OF THE FEMALE PELVIS - LIMITED REASON FOR EXAM: Female, 37 years old MONITOR FOR METASTATIC DISEASE -- BRCA2 gene TECHNIQUE: Transabdominal TECHNICAL QUALITY: Adequate. COMPARISON: Comparison is made with prior study dated 04/14/2022. FINDINGS: The uterus is anteverted and is in a midline position. The uterus measures 10.1 x 7.3 x 4.4 cm. Normal uterine cervix. The endometrium measures 6 mm in thickness, and is hyperechoic. There is no demonstrated endometrial mass. There is no demonstrated myometrial mass. The right ovary measures 3.3 cm x 3.2 cm x 1.9 cm. There is no right ovarian cyst or ovarian mass. There is no visualized right adnexal mass or complex lesion. There is normal arterial and normal venous vascularity. The left ovary measures 4.9 cm x 3.6 cm x 2.2 cm. There is no left ovarian cyst or ovarian mass. There is no visualized left adnexal mass or complex lesion. There is normal arterial and normal venous vascularity. There is no fluid in the cul-de-sac. US/Pelvic (Non ) IMPRESSION: Normal female pelvis. Electronically Signed: Lincoln Santos MD at 9:01 EST ,
--- NOTE | 2022-09-15 08:24 | US_ITS ---
STUDY: ULTRASOUND BREAST - LEFT REASON FOR EXAM: Female, 37 years old. History of prior right mastectomy. TECHNIQUE: Axial and longitudinal images of the LEFT breast were performed with a high resolution ultrasound transducer. # OF IMAGES: 111 COMPARISON: None. FINDINGS: LEFT Breast: The entire left breast was examined with ultrasound. No sonographic abnormality is seen in the left breast. There is evidence of a 3 benign-appearing lymph nodes in the left axilla. US/Breast Limited Unilateral IMPRESSION: No abnormality is seen in the left breast. 3 benign-appearing lymph nodes are seen in the left axilla. ASSESSMENT CATEGORY: BIRADS Category 2: Benign. A letter regarding these results will be sent to the patient by the facility within 30 days. Electronically Signed: Lincoln Santos MD at 10:01 [facility] ,
== END | disposition home or self-care (01) ==
PROVIDERS: PCP Family Medicine; Visit Provider Internal Medicine Medical Oncology
DX: C50.911 Malignant neoplasm of unspecified site of right female breast (principal); Z15.01 Genetic susceptibility to malignant neoplasm of breast; Z15.09 Genetic susceptibility to other malignant neoplasm
CPT/HCPCS: 76642; 76856

== ENCOUNTER → 2023-09-23 | Outpatient (CLI) | payer SELFPAY ==
--- NOTE | 2023-09-23 12:56 | VDUE_ITS ---
Reason For Study: phlebitis & Hx breast cancer. Right Proximal Left Proximal Right jugular vein is spontaneous, widely Left subclavian vein is spontaneous, widely patent, phasic, with no intraluminal patent, phasic, with no intraluminal echogenicity noted. echogenicity noted. Right subclavian vein is spontaneous, widely patent, phasic, with no intraluminal echogenicity noted. Right Lower Arm Right radial vein is compressible. Right ulnar vein is compressible. Right Arm Right axillary vein is spontaneous, patent, phasic, competent, compressible and demonstrates augmentation. Right brachial vein is compressible. Right cephalic vein is compressible at wrist and compressible approx 5 cm from junction into axillary vein. Balance of Right Cephalic vein is DILATED, NONCOMPRESSIBLE with NO FLOW NOTED WITHIN VESSEL. Right basilic vein is compressible. VL/Venous Duplex US, Unilateral Interpretation Summary Superficial vein thrombosis noted in the right cephalic vein Deep veins of the right upper extremity are patent and compressible segmentally . There is no evidence of deep vein thrombosis. Ordering Physician: Melina Shaffer Referring Physician: Melina Shaffer Performed By: Kasey Farooq, RDCS, RVT ???
== END | disposition home or self-care (01) ==
LOC: CVS 12:55
PROVIDERS: PCP Family Medicine; Referring Provider Family Medicine; Visit Provider Family Medicine
DX: I80.8 Phlebitis and thrombophlebitis of other sites (principal)
CPT/HCPCS: 93971

== ENCOUNTER → 2023-10-01 | Outpatient (CLI) | payer SELFPAY ==
--- NOTE | 2023-10-01 12:58 | VDUE_ITS ---
Reason For Study: Known SVT Right Proximal Right jugular vein is spontaneous, widely patent, phasic, with no intraluminal echogenicity noted. Right subclavian vein is spontaneous, widely patent, phasic, with no intraluminal echogenicity noted. Right Lower Arm Right radial vein is compressible. Right ulnar vein is compressible. Right Arm Right axillary vein is spontaneous, patent, phasic, competent, compressible and demonstrates augmentation. Right brachial vein is compressible. Acute superficial vein thrombosis is noted in the right cephalic vein from mid bicep to distal forearm. It is NONCOMPRESSIBLE and dilated. Compared to 09/23/2023. Right basilic vein is compressible. Patient Safety Preliminary report given to Dr. Shaffer. VL/Venous Duplex US, Unilateral Interpretation Summary Superficial vein thrombosis noted in the right cephalic vein. Less proximal ext ension than on prior study Deep veins of the right upper extremity are patent and compressible segmentally . There is no evidence of deep vein thrombosis. Ordering Physician: Melina Shaffer Referring Physician: Melina Shaffer Performed By: Rosanna Brand RVT ???
== END | disposition home or self-care (01) ==
LOC: CVS 12:55
PROVIDERS: PCP Family Medicine; Referring Provider Family Medicine; Visit Provider Family Medicine
DX: I82.611 Acute embolism and thrombosis of superficial veins of right upper extremity (principal)
CPT/HCPCS: 93971

== ENCOUNTER → 2023-11-04 | Outpatient (CLI) | payer SELFPAY ==
--- NOTE | 2023-11-04 | FLU_PTH ---
PATIENT: LISS WASHBURN LOC: [facility]#:[id number] AGE/SX: 38/F ROOM: RE11/04/[address]: Dr. Mirza Covarrubias DO : 1985 BED: DIS: 11/04/2023 SPEC #: [id number] RECD: 11/04/23 08:55 STATUS: ZACK PUSHPA #: [id number] BRADLY: 11/04/23 00:[address]: Mirza Covarrubias DEPT: CYTOLOGY RECD BY: Apryl Malagon ENTERED: 11/04/23 10:50 SP TYPE: Fluid OTHR DR: Dr. Melina Shaffer MD Tissues: THORACIC FLUID Procedures: Special Stain Group II Surgery Specimen Level IV Cytospin Fluid HEADER OPERATION: Ultrasound guided right Thoracentesis PRE-OP DIAGNOSIS: Right breast cancer with bone with bone mets, Ovarian mass TISSUE SUBMITTED: Thoracentesis fluid for cytology DIAGNOSIS CYTOLOGY Thoracentesis fluid for cytology (cytospin and cellblock): A few atypical epithelial cells noted. See comment. SJ/mr 11/06/23 COMMENT Immunohistochemistry ([id number]) is noncontributory for further classification of these atypical epithelial cells. Clinical correlation and appropriate follow up are necessary. Case has been reviewed in consultation with Dr. Palomino who concurs with the above diagnosis. IDC:AM CYTOLOGY STUDY Slides are reviewed. CYTOLOGY GROSS Received is 90 ml of reddish liss-cloudy fluid labeled with the patient's name and and designated per the requisition as Thoracentesis fluid. Submitted for cytology preparation including cell block. mr 11/04/23 TC:5 CPT: [id number]
--- NOTE | 2023-11-04 | IMM_PTH ---
PATIENT: HARRY WASHBURN LOC: [facility]#:[id number] AGE/SX: 38/F ROOM: RE11/04/[address]: Dr. Mirza Covarrubias DO : 1985 BED: DIS: 11/04/2023 SPEC #: [id number] RECD: 11/05/23 11:25 STATUS: ZACK REQ #: [id number] BRADLY: 11/04/23 00:[address]: Mirza Covarrubias DEPT: IMMUNOHISTOCHEMISTRY RECD BY: Meir Pond ENTERED: 11/05/23 11:27 SP TYPE: IMMUNO OTHR DR: Dr. Melina Shaffer MD Tissues: THORACIC FLUID Procedures: RCC (add) CA-125 (add) Alexandro Ret (add) CEA (add) CK20 (add) CK5-6 (add) CK7 (add) CK8 (add) E-CAD (add) HEP PAR (add) HER2 ASIF (add) MACRO (add) MAMM (add) AL (add) TTF1 (add) Vimentin (add) Pankeratin (add) GATA3 (add) P40 (add) ER (initial) PHYSICIAN & INSTITUTION [place] [id number] SPECIMEN INFORMATION: Tissue Source: Thoracentesis fluid Clinical Info: Right breast cancer with bone mets, Ovarian mass Specimen Number: [id number] CPT code: 85245,25313i12 METHODOLOGY: Deparaffinized sections of prefer/formalin-fixed tissue or PAP/DQ stained slides are incubated with monoclonal/polyclonal antibodies/oligonucleotide probes. Localization is made via biotin free immunoperoxidase method. Appropriate controls are performed and reacted as expected. Results on target cell population are indicated in the following table: RESULTS: ANTIBODY / CLONE RESULT ER (6F11) negative AL (1E2) negative E-Cad (ECH-6) positive Mammaglobin (31A5) negative GATA3 (L50-823) negative AE1-3 (AE1/AE3/PCK26) positive, a few cells CK7 (OV-TL12/30) positive, a few cells CK8 (20qwzjT38) positive, a few cells CK20 (KS20.8) negative Vimentin (V9) negative Macro (HAM-56) negative TTF-1 (8G7G3/1) negative HepPar (OCh1E5) negative RCC (PN-15) negative CALRET (polyclonal) negative CK5-6 (D5 & 1684) negative P40 (BC28) negative CEA (11-7/TF-3HB-1) positive, a few cells CA125 (OC125) positive, rare cells Her-2neu (CB11) negative Napsin A (Rabbit Polyclonal) negative These tests were developed and their performance characteristics determined by [facility]. They may not have been cleared or approved by the U.S. Food and Drug Administration. The FDA has determined that such clearance or approval is not necessary. The above immunohistochemical/dualISH markers are ordered and reviewed by the Pathologist. INTERPRETATION: Thoracentesis fluid (cellblock): Rare atypical epithelial cells noted. SJ/mr 11/06/23 Comment: IHC profile is noncontributory for further classification of these cells. Clinical correlation is necessary. Case has been reviewed in consultation with Dr. Palomino who concurs with the above diagnosis. IDC:AM
[2023-11-04 08:14] VITALS: BP 135/96; PULSE 119; RESP 18; TEMP 37.1; O2SAT 96
[2023-11-04] MEDS: Lidocaine 2% (20 ml mdv) 20 ML Vial INFILT (08:20)
[2023-11-04 08:29] VITALS: BP 126/80; PULSE 119; RESP 22; O2SAT 89
--- NOTE | 2023-11-04 08:35 | RAD_ITS ---
STUDY: X-RAY CHEST REASON FOR EXAM: Female, 38 years old. Post thora TECHNIQUE: AP inspiration and expiration views. COMPARISON: None. FINDINGS: The patient is status post right thoracentesis. There is a moderate size loculated pneumothorax. The patient is asymptomatic. RAD/Chest Insp/Exp 2 View IMPRESSION: Moderate-sized loculated right pneumothorax following the right thoracentesis. The patient is asymptomatic. Electronically Signed: Lincoln Santos MD at 9:46 EDT ,
[2023-11-04 08:36] VITALS: BP 100/74; PULSE 112; RESP 22; O2SAT 92
[2023-11-04 08:48] VITALS: BP 127/85; PULSE 111; RESP 18; O2SAT 94
[2023-11-04 08:56] LABS: Cytology, Body Fluid / CSF SEE PATHOLOGY REPORT
--- NOTE | 2023-11-04 09:03 | PRO.PCM_ITS ---
Procedure Report Date of Procedure: 11/04/23 Assessment & Plan Assessment/Plan (1) Pleural effusion, right: PLAN: PROCEDURE: Ultrasound Guided Thoracentesis ORDERING PROVIDER: [ ] INDICATION: [ ], [ ] years old. [ ]. PROVIDER: RUTHIE Gibson PROCEDURE: The risks, benefits, and alternatives to the procedure were explained to the [ ]. The specific risks of bleeding, infection, and pneumothorax requiring chest tube insertion were discussed and accepted. Written informed consent was obtained. The patient was placed in the sitting, upright position. Ultrasonographic evaluation of the bilateral lower pleural spaces was carried out. An adequate pocket was identified in the [ ].The overlying skin was prepped and draped in sterile fashion. [ ] % lidocaine was administered subcutaneously for local anesthesia. Under ultrasound guidance, a [ ]-Bhutanese thoracentesis needle/catheter system was advanced into the [ ] posterior lower pleural fluid collection. [ ] ml of [ ] colored fluid was drained. The catheter was removed, and a sterile dressing was applied. The patient tolerated the procedure well. A chest x-ray was ordered. IMPRESSION: [ ]
--- NOTE | 2023-11-04 09:03 | PCM.OP.PRO ---
Procedure Report Date of Procedure: 11/04/23 Assessment & Plan Assessment/Plan (1) Pleural effusion, right: PLAN: PROCEDURE: Ultrasound Guided Thoracentesis ORDERING PROVIDER: Dr. Covarrubias INDICATION: Female, 38 years old. Right pleural effusion. PROVIDER: RUTHIE Gibson PROCEDURE: The risks, benefits, and alternatives to the procedure were explained to the patient. The specific risks of bleeding, infection, and pneumothorax requiring chest tube insertion were discussed and accepted. Written informed consent was obtained. The patient was placed in the sitting, upright position. Ultrasonographic evaluation of the bilateral lower pleural spaces was carried out. An adequate pocket was identified in the right lower pleural space.The overlying skin was prepped and draped in sterile fashion. 2% lidocaine was administered subcutaneously for local anesthesia. Under ultrasound guidance, a 5-[place] Islander thoracentesis needle/catheter system was advanced into the right posterior lower pleural fluid collection. 2210 ml of liss colored fluid was drained. 100 mL of this fluid was collected and sent to the laboratory for analysis. The catheter was removed, and a sterile dressing was applied. The patient tolerated the procedure well. A chest x-ray was ordered. IMPRESSION: Successful ultrasound-guided thoracentesis of right pleural effusion. Procedures Radiology Radiology US Procedures: [id number] Thoracentesis
== END | disposition home or self-care (01) ==
PROVIDERS: PCP Family Medicine; Referring Provider Internal Medicine Hematology & Oncology; Visit Provider Internal Medicine Hematology & Oncology
DX: C50.811 Malignant neoplasm of overlapping sites of right female breast (principal); C50.911 Malignant neoplasm of unspecified site of right female breast; Z17.0 Estrogen receptor positive status [ER+]; N83.8 Other noninflammatory disorders of ovary, fallopian tube and broad ligament
CPT/HCPCS: 32555; 71046; 88108; 88305; 88313; 88341; 88342